=== PATIENT | male | born 1970 | race African-American/Black ===

== ENCOUNTER 2017-07-09 06:05 | Emergency (ER) | payer BC ==
[2017-07-09 06:18] VITALS: BP 157/96; PULSE 102; TEMP 97.5; BMI 25.0
[2017-07-09] MEDS ORDERED: SODIUM CHLORIDE 1,000 ML IV ONE (06:22)
--- NOTE | 2017-07-09 06:22 | PDOC ---
History of Present Illness - General Chief Complaint: Weakness Stated Complaint: WEAKNESS DECREASED APPETITE Time Seen by Provider: 07/09/17 06:16 History Source: Patient Exam Limitations: No Limitations - History of Present Illness Initial Comments: 07/09/17 06:35 This is a 47-year-old male who is an insulin-dependent diabetic who comes in complaining of not feeling well. Patient said he has had decreased appetite and has vomited what he has eaten a couple a times. Patient denies any fever, cough , congestion, diarrhea, chest pain, abdominal pain, shortness of breath, rashes or recent illnesses. Patient said his sugars have been running somewhat high and at home yesterday were in the 400s. Today in the emergency room his fingerstick blood sugar was 376. PAST MEDICAL HISTORY: no significant history PAST SURGICAL HISTORY: no significant history FAMILY HISTORY: no pertinant history SOCIAL HISTORY: Pt lives with family and is employed. MEDICATIONS: reviewed ALLERGIES: As per nursing notes Review of Systems General: No fevers or chills, no weakness, no weight loss HEENT: No change in vision. No sore throat,. No ear pain CardioVascular: No chest pain or shortness of breath Respiratory:No cough, or wheezing. Gastrointestinal: no nausea, vomitting, diarrhea or constipation, No rectal bleeding Genitourinary: No dysuria, hematuria, or frequency Musculoskeletal: No joint or muscle pain or swelling Neurologic: No headache, vertigo, dizziness or loss of consciousness Psychiatric: no depression Skin: No rashes or easy bruising Endocrine: no increased thirst or abnormal weight change Allergic: no skin or latex allergy All other systems reviewed and normal Exam: General: Well-nourished well-developed individual, no acute distress HEENT: Throat: Normal, tonsils normal, no erythema or exudate Neck: Supple, no meningeal signs, no lymphadenopathy Eyes::Pupils equal reactive and round, extraocular motion intact Chest: Nontender to palpation Cardiac: S1-S2 normal, regular rate and rhythm, no murmurs rubs or gallops Respiratory: Lungs clear to auscultation bilateral Abdomen: Soft, nondistended, normal bowel sounds, nontender to palpation diffusely Extremities: Warm, dry, no cyanosis, clubbing, or edema Skin: No rashes Neuro: Alert and oriented x3, CN II - XII intact, nonfocal exam with normal strength, normal sensation, normal reflexes, normal gait, Psych: Normal mood and affect Medical decision making: This is a 47-year-old male, insulin-dependent diabetic, otherwise healthy whose blood sugarshave been running a bit high and he hasn't been feeling well. Will obtain CBC, comp, EKG, lipase, magnesium, cardiac profiles, Will give patient a liter of fluid and asked that patient give himself a insulin bolus from his pump to cover the elevated fingerstick blood sugar here in the ED. 07/09/17 06:38 EKG shows normal sinus rhythm at a rate of 100, otherwise no acute ST-T wave changes 07/09/17 07:00 Care of this patient was transferred to Dr. Lisa at 7 AM workup of this patient is still pending. Case discussed in detail with oncoming Emergency Physician including history, physical exam and ancillary studies. Oncoming Emergency Physician has assumed care for the patient and will complete the evaluation and treatment. Patient is aware of the plan. Pt is clinically unchanged and stable. Past History - Past Medical History Allergies/Adverse Reactions: Allergies Allergy/AdvReac Type Severity Reaction Status Date / Time No Known Allergies Allergy Verified 11/02/15 09:11 Home Medications: Ambulatory Orders Insulin Pump Controller [Snap Insulin Pump Controller] 0 units SQ DAILY Diabetes: Yes (iddm) - Suicide/Smoking/Psychosocial Hx Smoking History: Current every day smoker Have you smoked in the past 12 months: No Number of Cigarettes Smoked Daily: 10 'Breaking Loose' booklet given: 10/29/14 Hx Alcohol Use: No Drug/Substance Use Hx: No Substance Use Type: None *DC/Admit/Observation/Transfer Diagnosis at time of Disposition: Hyperglycemia - Discharge Dispostion Condition at time of disposition: Stable - Referrals Referrals: Rowdy Jarrett MD [Primary Care Provider] - - Patient Instructions - Post Discharge Activity
[2017-07-09 07:32] LABS: PH,URINE 5.5 (4.5-8); URINE APPEARANCE Clear; URINE BILIRUBIN 1+ (NEGATIVE); URINE GLUCOSE (UA) 2+ (NEGATIVE); URINE KETONE 4+ (NEGATIVE); URINE LEUK ESTERASE Negative (NEGATIVE); URINE NITRITE Negative (NEGATIVE)
[2017-07-09 07:46] LABS: BASOPHIL 0.5 % (0-2.0); EOSINOPHIL 0.9 % (0-4.5); MCH 31.8 pg (25.7-33.7); MEAN CELL VOLUME 93.4 fl (80-96); NEUTROPHILS 68.2 % (42.8-82.8); PLATELET COUNT 386 K/MM3 (134-434); RDW 11.6 % (11.9-15.9); WHITE BLOOD COUNT 13.1 K/mm3 (4.0-10.8)
[2017-07-09 07:47] LABS: URINE BLOOD Trace-lysed (NEGATIVE); URINE COLOR YELLOW; URINE PROTEIN 1+ (NEGATIVE)
[2017-07-09] MEDS ORDERED: SODIUM CHLORIDE 0.9% 1000 ML INFUS.BAG IV ONE (08:01)
[2017-07-09 08:31] LABS: ALBUMIN 4.3 g/dl (3.5-5.0); ALK PHOS 85 U/L (32-92); ANION GAP 15 (8-16); BILIRUBIN,TOTAL 1.3 mg/dl (0.2-1.0); CALCIUM 9.4 mg/dl (8.4-10.2); CO2 20 mmol/L (22-28); CPK 187 IU/L (39-308); MAGNESIUM 1.9 mg/dL (1.8-2.4); SGOT/AST 16 U/L (10-42); SGPT/ALT 37 U/L (10-40)
[2017-07-09 08:39] LABS: GLUCOSE,RANDOM 365 mg/dl (74-106)
[2017-07-09 08:41] LABS: TROPONIN I (DFP) < 0.03 ng/ml (0.03-0.50)
[2017-07-09 09:56] LABS: ANION GAP 8 (8-16); CALCIUM 8.5 mg/dl (8.4-10.2); CO2 22 mmol/L (22-28); CREATININE 0.8 mg/dl (0.6-1.3); GLUCOSE,RANDOM 211 mg/dl (74-106)
[2017-07-09 10:30] LABS: URINE RBC 0-2 /hpf (0-3); URINE WBC 0-2 (0-2)
[2017-07-09 10:32] LABS: URINE BACTERIA FEW /hpf (NEGATIVE)
--- NOTE | 2017-07-09 10:36 | PDOC ---
*Physical Exam - Vital Signs Last Vital Signs Temp Pulse Resp BP Pulse Ox 97.5 F L 102 H 16 157/96 100 07/09/17 06:13 07/09/17 06:13 07/09/17 06:13 07/09/17 06:13 07/09/17 06:13 - Physical Exam Comments: 07/09/17 10:36 Awake alert no acute distress, moist mucous membranes, cardiac and lung exam is normal abdomen is soft and nontender, extremities are warm well perfused, alert and oriented. ED Treatment Course - LABORATORY CBC & Chemistry Diagram: 07/09/17 06:40 07/09/17 09:27 - ADDITIONAL ORDERS Additional order review: Laboratory Results 07/09/17 07/09/17 07/09/17 09:27 09:27 08:49 Sodium 137 Potassium 4.2 Chloride 107 Carbon Dioxide 22 Anion Gap 8 BUN 15 Creatinine 0.8 Creat Clearance w eGFR POC Glucometer [phone] Random Glucose 211 H D Calcium 8.5 Magnesium Total Bilirubin AST ALT Alkaline Phosphatase Creatine Kinase Creatine Kinase Index CK-MB (CK-2) 3.6 Troponin I Cancelled Total Protein Albumin Lipase Urine Color Urine Appearance Urine pH Ur Specific Maynard Urine Protein Urine Glucose (UA) Urine Ketones Urine Blood Urine Nitrite Urine Bilirubin Urine Urobilinogen Ur Leukocyte Esterase 07/09/17 07/09/17 07/09/17 06:50 06:50 06:30 Sodium 133 L Potassium 4.1 Chloride 98 Carbon Dioxide 20 L D Anion Gap 15 BUN 17 D Creatinine 1.0 D Creat Clearance w eGFR > 60 POC Glucometer Random Glucose 365 H* D Calcium 9.4 Magnesium 1.9 Total Bilirubin 1.3 H D AST 16 D ALT 37 D Alkaline Phosphatase 85 Creatine Kinase 187 Creatine Kinase Index 2.2 CK-MB (CK-2) 4.2 H Troponin I < 0.03 L Total Protein 7.0 Albumin 4.3 Lipase 16 L Urine Color Yellow Urine Appearance Clear Urine pH 5.5 Ur Specific Maynard 1.025 Urine Protein 1+ H Urine Glucose (UA) 2+ H Urine Ketones 4+ H Urine Blood Trace-lysed H Urine Nitrite Negative Urine Bilirubin 1+ H Urine Urobilinogen 1.0 Ur Leukocyte Esterase Negative 07/09/17 06:13 Sodium Potassium Chloride Carbon Dioxide Anion Gap BUN Creatinine Creat Clearance w eGFR POC Glucometer [phone] Random Glucose Calcium Magnesium Total Bilirubin AST ALT Alkaline Phosphatase Creatine Kinase Creatine Kinase Index CK-MB (CK-2) Troponin I Total Protein Albumin Lipase Urine Color Urine Appearance Urine pH Ur Specific Maynard Urine Protein Urine Glucose (UA) Urine Ketones Urine Blood Urine Nitrite Urine Bilirubin Urine Urobilinogen Ur Leukocyte Esterase 07/09/17 07/09/17 07/09/17 08:49 06:40 06:13 RBC 4.52 MCV 93.4 MCHC 34.0 RDW 11.6 L MPV 8.0 Neutrophils % 68.2 D Lymphocytes % 23.9 D Monocytes % 6.5 Eosinophils % 0.9 D Basophils % 0.5 POC Glucometer [phone] - Medications Given in the ED: ED Medications Discontinued Medications Generic Name Dose Route Start Last Admin Trade Name Leanne PRN Reason Stop Dose Admin Sodium Chloride 1,000 mls @ 1,000 mls/hr 07/09/17 06:22 07/09/17 06:36 Normal Saline - IV 07/09/17 07:21 1,000 mls/hr .Q1H ONE Administration Sodium Chloride 1,000 ml 07/09/17 08:01 07/09/17 08:04 Normal Saline - IV 07/09/17 08:02 1,000 ml ONCE ONE Administration Medical Decision Making - Medical Decision Making 07/09/17 10:34 47-year-old male diabetic here today complaining of nausea vomiting and high sugars since yesterday. Patient states he threw up a few times last night. None today however has not eaten anything today. He does use an insulin pump has not given himself any boluses due to the fact that he has not been eating. Does have a sick contact of her daughter who had a viral illness and cold-like symptoms 2 weeks ago. No travel, abdominal pain, chest pain, or fevers. Patient was signed out to a Dr. August pending routine lab work IV hydration and repeat glucose check. Repeat glucose check was 211, lites showed a minor gap of 15, CK-MB was 4.2 troponin was negative. EKG was unremarkable. Patient feels improved after 2 L of IV fluids is now tolerating by mouth both liquids and solids, repeat BMP shows a normal anion gap, and a normal CK-MB. We'll discharge patient home to follow-up with his primary doctor Dr. Robles. States he had a normal cardiac stress test one month ago *DC/Admit/Observation/Transfer Diagnosis at time of Disposition: Hyperglycemia, Gastritis - Discharge Dispostion Disposition: HOME Condition at time of disposition: Improved Admit: No - Referrals Referrals: Rowdy Jarrett MD [Primary Care Provider] - - Patient Instructions Printed Discharge Instructions: Gastritis (Alternative Therapy) Additional Instructions: Follow-up with Dr. Robles. Call to schedule for next week. Return for any persistent vomiting, high fevers, pain, persistent high sugars or any concerns - Post Discharge Activity
--- NOTE | 2017-07-10 10:23 | EKG ---
Test Reason : Blood Pressure : / mmHG Vent. Rate : 100 BPM Atrial Rate : 100 BPM P-R Int : 132 ms QRS Dur : 086 ms QT Int : 350 ms P-R-T Axes : 072 070 068 degrees QTc Int : 451 ms NORMAL SINUS RHYTHM MINIMAL VOLTAGE CRITERIA FOR LVH, MAY BE NORMAL VARIANT BORDERLINE ECG WHEN COMPARED WITH ECG OF 16-MAY-2007 19:42, VENT. RATE HAS INCREASED BY 36 BPM QT HAS LENGTHENED Confirmed by ELIDA GREEN, HYACINTH ([id number]) on 07/10/2017 10:23:05 AM Referred By: DR PULLIAM Confirmed By:HYACINTH MARRERO MD
== END 2017-07-09 11:48 | disposition home or self-care (01) ==
LOC: FER 06:05
PROC: 3E0337Z Introduction of Electrolytic and Water Balance Substance into Peripheral Vein, Percutaneous Approach (ICD-10-PCS; principal; 2017-07-09)
DX: E11.65 Type 2 diabetes mellitus with hyperglycemia (principal); F17.210 Nicotine dependence, cigarettes, uncomplicated; Z79.4 Long term (current) use of insulin; Z96.41 Presence of insulin pump (external) (internal)
CPT/HCPCS: 36415; 80048; 80053; 81003; 81015; 82550; 82553; 83690; 83735; 84484; 85025; 93005; 99282-25

== ENCOUNTER 2020-09-16 15:23 | Emergency (ER) | payer BC | END 2020-09-16 17:09 | disposition home or self-care (01) | LOC: JVIRT 15:23 | DX: Z20.822 Contact with and (suspected) exposure to COVID-19 (principal) | CPT/HCPCS: C9803; G2012-GT; U0003 ==

== ENCOUNTER 2021-06-06 08:03 | Emergency (ER) | payer OTHER, BC ==
[2021-06-06 08:11] VITALS: BP 128/78; PULSE 76; TEMP 98; BMI 26.2
[2021-06-06] MEDS ORDERED: DIPHTH,PERTUSS(ACELL),TET 0.5 ML DISP.SYRIN IM ONE ×2 (08:14→08:38)
== END 2021-06-06 08:44 | disposition home or self-care (01) ==
LOC: FER 08:03
PROC: 3E0234Z Introduction of Serum, Toxoid and Vaccine into Muscle, Percutaneous Approach (ICD-10-PCS; principal; 2021-06-06)
DX: S61.012A Laceration without foreign body of left thumb without damage to nail, initial encounter (principal); W26.0XXA Contact with knife, initial encounter; Y93.G1 Activity, food preparation and clean up
CPT/HCPCS: 90715; 99284-25

== ENCOUNTER 2021-11-27 07:22 | Emergency (ER) | payer BC ==
[2021-11-27] MEDS ORDERED: AMOX TR/POT CLAV 875MG/125MG TABLETS (FP) PO ONE (07:28)
[2021-11-27] MEDS ORDERED: IBUPROFEN 600 MG TABLET (FP) PO ONE (07:28)
[2021-11-27 07:39] VITALS: BP 125/77; PULSE 107; TEMP 98.7; BMI 26.4
== END 2021-11-27 07:47 | disposition home or self-care (01) ==
LOC: FER 07:22
DX: K04.7 Periapical abscess without sinus (principal)
CPT/HCPCS: 99283-25

== ENCOUNTER 2022-04-25 09:14 | Emergency (ER) | payer BC ==
[2022-04-25] MEDS ORDERED: SODIUM CHLORIDE 1,000 ML IV STA (09:23)
[2022-04-25] MEDS ORDERED: FAMOTIDINE 20 MG/50 ML IVPB 20 MG/50 ML MG IVPB ONE ×2 (09:23→09:37)
[2022-04-25 09:32] VITALS: TEMP 99.2; BMI 25.4
[2022-04-25 10:43] LABS: HEMATOCRIT 38.7 % (35.4-49); HEMOGLOBIN 13.5 G/dL (11.7-16.9); MCH 32.6 pg (25.7-33.7); MCHC 34.8 g/dl (32.0-35.9); MEAN CELL VOLUME 93.8 fl (80-96); MEAN PLT VOLUME 6.8 fl (7.5-11.1); PLATELET COUNT 386.8 10^3/uL (134-434); RBC 4.13 10^6/uL (4.00-5.60); RDW 12.8 % (11.9-15.9); WHITE BLOOD COUNT 6.9 10^3/uL (4.0-10.8)
[2022-04-25 11:05] LABS: ALBUMIN 3.9 g/dl (3.4-5.0); BILIRUBIN,TOTAL 1.1 mg/dl (0.2-1); CALCIUM 9.4 mg/dl (8.5-10); CREATININE 0.7 mg/dl (0.55-1.3); TOT PROT 6.6 g/dl (6.4-8.2)
[2022-04-25 12:17] LABS: EPITHELIAL CELLS RARE /hpf; URINE MUCUS 2+
[2022-04-25 12:52] LABS: PLATELET ESTIMATE ADEQUATE
[2022-04-25 13:52] VITALS: BP 129/90; PULSE 81; RESP 16
== END 2022-04-25 14:03 | disposition home or self-care (01) ==
LOC: FER 09:14
PROC: 3E033GC Introduction of Other Therapeutic Substance into Peripheral Vein, Percutaneous Approach (ICD-10-PCS; principal; 2022-04-25)
DX: R10.13 Epigastric pain (principal)
CPT/HCPCS: 36415; 74177-TC; 80053; 81003; 81015; 83690; 84484; 85027; 87086; 99285-25; C1887; Q9967

== ENCOUNTER 2022-09-20 07:07 | Day surgery (SDC) | payer BC ==
[2022-09-20 07:26] VITALS: BMI 25.7
[2022-09-20] MEDS ORDERED: ACETAMINOPHEN 500 MG TABLET (FP) PO ONE (08:12)
[2022-09-20] MEDS ORDERED: MIDAZOLAM HCL 2 MG/2 ML SINGLE DOSE VIAL ONE ×2 (09:16→09:21)
[2022-09-20] MEDS ORDERED: PROPOFOL 20 ML ONE ×2 (09:19→10:18)
[2022-09-20] MEDS ORDERED: ceFAZolin SODIUM 1 GM VIAL IVPB ONE (09:22)
[2022-09-20] MEDS ORDERED: LIDOCAINE HCL 1%, 10 MG/ML (20ML VIAL) INF ONE ×3 (09:35)
[2022-09-20] MEDS ORDERED: CLOPIDOGREL BISULFATE 75 MG TABLET (FP) PO ONE (10:37)
[2022-09-20] MEDS ORDERED: CLOPIDOGREL BISULFATE 75 MG TABLET (FP) ONE (11:01)
[2022-09-20] MEDS ORDERED: oxyCODONE HCL 5 MG TABLET PO ONE (11:14)
[2022-09-20] MEDS ORDERED: ONDANSETRON 4 MG/2 ML VIAL IVPUSH PRN (11:14)
[2022-09-20] MEDS ORDERED: LACTATED RINGERS SOLUTION 1,000 ML IV SCH (11:15)
[2022-09-20 12:04] VITALS: RESP 18
[2022-09-20] MEDS ORDERED: oxyCODONE HCL 5 MG TABLET ONE (12:09)
[2022-09-20 12:59] VITALS: BP 139/76; PULSE 76; TEMP 97.9
== END 2022-09-20 12:50 | disposition home or self-care (01) ==
LOC: JER 07:07 → JERFT 07:07 → JASUSAT 08:51
PROVIDERS: ATTEND Surgery Vascular Surgery
PROC: 047L3D1 Dilation of Left Femoral Artery with Intraluminal Device, using Drug-Coated Balloon, Percutaneous Approach (ICD-10-PCS; principal; 2022-09-20 10:30)
DX: I70.212 Atherosclerosis of native arteries of extremities with intermittent claudication, left leg (principal)
CPT/HCPCS: 37227; C1877; C2623; 76000-TC-FY; 93971-TC; 94760; 99285-25; C1760; C1769; C1887

== ENCOUNTER 2022-11-15 07:49 | Inpatient (IN) | payer BC ==
[2022-11-15 07:58] VITALS: BMI 25.0
[2022-11-15 09:06] LABS: BASO % 0.5 % (0-2.0); EOS % 2.5 % (0-4.5); HEMATOCRIT 40.3 % (35.4-49); HEMOGLOBIN 13.9 GM/dL (11.7-16.9); LYMPH % 23.3 % (8-40); MCH 30.7 pg (25.7-33.7); MCHC 34.5 g/dl (32.0-35.9); MEAN CELL VOLUME 88.9 fl (80-96); MEAN PLT VOLUME 7.1 fl (7.5-11.1); MONO % 5.4 % (3.8-10.2); NEUT % 68.3 % (42.8-82.8); PLATELET COUNT 416 10^3/uL (134-434); RBC 4.53 M/mm3 (4.00-5.60); RDW 12.3 % (11.9-15.9); WHITE BLOOD COUNT 8.3 K/mm3 (4.0-10.0)
[2022-11-15 09:15] LABS: INR 1.08 (0.83-1.09); PROTHROMBIN TIME (PATIENT) 12.5 SEC (9.7-13.0)
[2022-11-15 09:17] LABS: ACTIVATED PTT 44.4 SECONDS (25.2-36.5)
[2022-11-15 09:25] LABS: CHLORIDE 99 mmol/L (98-107); SODIUM 135 mmol/L (136-145)
[2022-11-15 09:27] LABS: CALCIUM 9.9 mg/dL (8.5-10.1)
[2022-11-15 09:28] LABS: ALBUMIN 3.7 g/dl (3.4-5.0); ANION GAP 6 MMOL/L (8-16); BLOOD UREA NITROGEN 18.9 mg/dL (7-18); CO2 30 mmol/L (21-32)
[2022-11-15 09:30] LABS: SGOT/AST 48 U/L (15-37); SGPT/ALT 128 U/L (13-61)
[2022-11-15 09:32] LABS: BILIRUBIN,TOTAL 0.7 mg/dL (0.2-1); TOT PROT 7.6 g/dl (6.4-8.2)
[2022-11-15 09:33] LABS: ALK PHOS 141 U/L (45-117)
[2022-11-15 10:03] LABS: GLUCOSE,RANDOM 416 mg/dL (74-106)
[2022-11-15] MEDS ORDERED: SODIUM CHLORIDE 0.9% 500 ML INFUS.BAG IV ONE (10:06)
[2022-11-15] MEDS ORDERED: ACETAMINOPHEN 325 MG TABLET (FP) PO PRN ×2 (11:57→16:49)
[2022-11-15] MEDS ORDERED: SODIUM CHLORIDE 1,000 ML IV SCH (12:00)
[2022-11-15] MEDS ORDERED: PIPERACILLIN/TAZOB 3.375 GM 3.375 GM in DEXTROSE 5%-WATER - 50 ML IVPB SCH (13:00)
[2022-11-15] MEDS ORDERED: PREGABALIN 75 MG CAPSULE PO SCH (14:00)
[2022-11-15] MEDS ORDERED: HEPARIN NA (PORCINE) 5,000 UNITS/ML 1ML VIAL ONE ×4 (14:30→16:06)
[2022-11-15] MEDS ORDERED: LIDOCAINE HCL 1%, 10 MG/ML (10ML VIAL) MDV ONE (14:30)
[2022-11-15] MEDS ORDERED: MIDAZOLAM HCL 2 MG/2 ML SINGLE DOSE VIAL ONE ×3 (14:45→15:48)
[2022-11-15] MEDS ORDERED: PROPOFOL 20 ML ONE (14:45)
[2022-11-15] MEDS ORDERED: LIDOCAINE 1% P/F 10 MG/ML VIAL INF ONE (14:58)
[2022-11-15] MEDS ORDERED: ONDANSETRON 4 MG/2 ML VIAL IVPUSH PRN (16:21)
[2022-11-15] MEDS ORDERED: INSULIN SLIDING SCALE (NOVOLOG) 1 VIAL SQ SCH ×3 (16:30→22:00)
[2022-11-15] MEDS: CLOPIDOGREL BISULFATE 75 MG TABLET (FP) PO SCH (17:02)
[2022-11-15] MEDS ORDERED: INSULIN (NOVOLOG) ASPART 100 UNITS/ML 10ML VIAL SQ ONE (17:07)
[2022-11-15] MEDS ORDERED: CLOPIDOGREL BISULFATE 75 MG TABLET (FP) ONE (17:08)
[2022-11-15] MEDS: SODIUM CHLORIDE 1,000 ML IV SCH (18:10)
[2022-11-15] MEDS: PIPERACILLIN/TAZOB 3.375 GM 3.375 GM in DEXTROSE 5%-WATER - 50 ML IVPB SCH (18:37)
[2022-11-15] MEDS: oxyCODONE HCL 5 MG TABLET PO PRN (18:54)
[2022-11-15] MEDS ORDERED: INSULIN (LEVEMIR) 100 UNITS/ML UNITS SQ ONE ×2 (21:46→22:00)
[2022-11-15] MEDS: PREGABALIN 25 MG CAPSULE PO SCH (21:50)
[2022-11-16] MEDS: PIPERACILLIN/TAZOB 3.375 GM 3.375 GM in DEXTROSE 5%-WATER - 50 ML IVPB SCH ×3 (02:09→17:32)
[2022-11-16] MEDS: INSULIN SLIDING SCALE (NOVOLOG) 1 VIAL SQ SCH ×6 (02:15→21:40)
[2022-11-16] MEDS: PREGABALIN 25 MG CAPSULE PO SCH ×3 (06:37→21:12)
[2022-11-16] MEDS: oxyCODONE HCL 5 MG TABLET PO PRN (06:44)
[2022-11-16] MEDS ORDERED: INSULIN (LEVEMIR) 100 UNITS/ML UNITS SQ SCH ×2 (07:00)
[2022-11-16] MEDS ORDERED: INSULIN (NOVOLOG) ASPART 100 UNITS/ML 10ML VIAL SQ SCH ×2 (07:00)
[2022-11-16] MEDS ORDERED: GLUCAGON 1 MG KIT IVPUSH PRN ×2 (09:10→13:13)
[2022-11-16] MEDS ORDERED: PANTOPRAZOLE 40 MG TABLET PO SCH ×2 (10:00)
[2022-11-16] MEDS: SODIUM CHLORIDE 1,000 ML IV SCH ×2 (11:00→13:34)
[2022-11-16] MEDS: CLOPIDOGREL BISULFATE 75 MG TABLET (FP) PO SCH (11:07)
[2022-11-16] MEDS ORDERED: PROMETHAZINE HCL 25 MG/1 ML VIAL IVPB PRN ×2 (11:07→13:13)
[2022-11-16] MEDS ORDERED: ONDANSETRON 4 MG/2 ML VIAL IVPUSH PRN ×2 (11:07→13:13)
[2022-11-16] MEDS ORDERED: LACTATED RINGERS SOLUTION 1,000 ML IV SCH (11:15)
[2022-11-16] MEDS ORDERED: LIDOCAINE HCL 1%, 10 MG/ML (10ML VIAL) MDV ONE (11:58)
[2022-11-16] MEDS ORDERED: BUPIVACAINE HCL/PF 0.5% (5MG/ML) 10 ML VIAL ONE (11:58)
[2022-11-16] MEDS ORDERED: GENTAMICIN SO4 80 MG/2 ML VIAL ONE (11:58)
[2022-11-16] MEDS ORDERED: BUPIVACAINE HCL/PF 0.5% (5 MG/ML) 30 ML VIAL IJ ONE (12:24)
[2022-11-16] MEDS ORDERED: ACETAMINOPHEN 325 MG TABLET (FP) PO PRN (13:13)
[2022-11-16] MEDS ORDERED: oxyCODONE HCL 5 MG TABLET PO PRN (13:13)
[2022-11-16] MEDS: LACTATED RINGERS SOLUTION 1,000 ML IV SCH (15:36)
[2022-11-16] MEDS: INSULIN (NOVOLOG) ASPART 100 UNITS/ML 10ML VIAL SQ SCH (16:41)
[2022-11-16] MEDS ORDERED: INSULIN (NOVOLOG) ASPART 100 UNITS/ML 10ML VIAL ONE (21:18)
[2022-11-17] MEDS ORDERED: INSULIN (NOVOLOG) ASPART 100 UNITS/ML 10ML VIAL ONE (01:51)
[2022-11-17] MEDS: INSULIN SLIDING SCALE (NOVOLOG) 1 VIAL SQ SCH ×6 (01:53→21:49)
[2022-11-17] MEDS: PIPERACILLIN/TAZOB 3.375 GM 3.375 GM in DEXTROSE 5%-WATER - 50 ML IVPB SCH ×3 (01:54→17:47)
[2022-11-17] MEDS ORDERED: INSULIN (LEVEMIR) 100 UNITS/ML UNITS SQ ONE (05:58)
[2022-11-17] MEDS: INSULIN (NOVOLOG) ASPART 100 UNITS/ML 10ML VIAL SQ SCH ×3 (06:22→16:24)
[2022-11-17] MEDS: PREGABALIN 75 MG CAPSULE PO SCH ×3 (06:22→21:43)
[2022-11-17] MEDS: INSULIN (LEVEMIR) 100 UNITS/ML UNITS SQ SCH (06:23)
[2022-11-17] MEDS: CLOPIDOGREL BISULFATE 75 MG TABLET (FP) PO SCH (09:26)
[2022-11-17] MEDS: PANTOPRAZOLE 40 MG TABLET PO SCH (09:26)
[2022-11-17] MEDS: SODIUM CHLORIDE 1,000 ML IV SCH ×2 (09:28→13:20)
[2022-11-17] MEDS: LACTATED RINGERS SOLUTION 1,000 ML IV SCH (13:19)
[2022-11-17] MEDS ORDERED: PATIENT'S OWN MEDICATION (NON-FORMULARY) (Insulin Pump Controller [Snap Insulin Pump Contr SQ SCH (15:45)
[2022-11-17] MEDS: ACETAMINOPHEN 325 MG TABLET (FP) PO PRN (21:40)
[2022-11-17] MEDS: ATORVASTATIN CA 10 MG TABLET (FP) PO SCH (21:43)
[2022-11-18] MEDS: INSULIN SLIDING SCALE (NOVOLOG) 1 VIAL SQ SCH ×6 (02:25→21:06)
[2022-11-18] MEDS: PIPERACILLIN/TAZOB 3.375 GM 3.375 GM in DEXTROSE 5%-WATER - 50 ML IVPB SCH ×3 (02:27→17:38)
[2022-11-18] MEDS: PREGABALIN 75 MG CAPSULE PO SCH ×3 (06:14→21:06)
[2022-11-18] MEDS: INSULIN (LEVEMIR) 100 UNITS/ML UNITS SQ SCH (06:14)
[2022-11-18] MEDS: INSULIN (NOVOLOG) ASPART 100 UNITS/ML 10ML VIAL SQ SCH ×4 (07:00→16:54)
[2022-11-18] MEDS: SODIUM CHLORIDE 1,000 ML IV SCH ×2 (08:00→23:31)
[2022-11-18] MEDS: CLOPIDOGREL BISULFATE 75 MG TABLET (FP) PO SCH (10:27)
[2022-11-18] MEDS: PANTOPRAZOLE 40 MG TABLET PO SCH (10:27)
[2022-11-18] MEDS: ACETAMINOPHEN 325 MG TABLET (FP) PO PRN ×2 (10:33→21:11)
[2022-11-18] MEDS ORDERED: INSULIN (NOVOLOG) ASPART 100 UNITS/ML 10ML VIAL ONE (21:01)
[2022-11-18] MEDS: ATORVASTATIN CA 10 MG TABLET (FP) PO SCH (21:06)
[2022-11-19] MEDS: PIPERACILLIN/TAZOB 3.375 GM 3.375 GM in DEXTROSE 5%-WATER - 50 ML IVPB SCH ×3 (01:59→18:00)
[2022-11-19] MEDS: INSULIN SLIDING SCALE (NOVOLOG) 1 VIAL SQ SCH ×5 (02:28→18:04)
[2022-11-19] MEDS: PREGABALIN 75 MG CAPSULE PO SCH ×3 (06:41→21:32)
[2022-11-19] MEDS: INSULIN (LEVEMIR) 100 UNITS/ML UNITS SQ SCH (06:42)
[2022-11-19] MEDS: INSULIN (NOVOLOG) ASPART 100 UNITS/ML 10ML VIAL SQ SCH ×3 (06:44→17:02)
[2022-11-19] MEDS: CLOPIDOGREL BISULFATE 75 MG TABLET (FP) PO SCH (09:20)
[2022-11-19] MEDS: PANTOPRAZOLE 40 MG TABLET PO SCH (09:20)
[2022-11-19 10:43] LABS: BASO % 0.5 % (0-2.0); EOS % 4.4 % (0-4.5); HEMATOCRIT 36.3 % (35.4-49); HEMOGLOBIN 12.8 GM/dL (11.7-16.9); LYMPH % 27.1 % (8-40); MCH 30.9 pg (25.7-33.7); MCHC 35.4 g/dl (32.0-35.9); MEAN CELL VOLUME 87.4 fl (80-96); MEAN PLT VOLUME 6.7 fl (7.5-11.1); MONO % 7.3 % (3.8-10.2); NEUT % 60.7 % (42.8-82.8); PLATELET COUNT 392 10^3/uL (134-434); RBC 4.15 M/mm3 (4.00-5.60); RDW 12.5 % (11.9-15.9); WHITE BLOOD COUNT 7.8 K/mm3 (4.0-10.0)
[2022-11-19 11:02] LABS: ALBUMIN 3.2 g/dl (3.4-5.0); BLOOD UREA NITROGEN 11.8 mg/dL (7-18); CALCIUM 9.3 mg/dL (8.5-10.1)
[2022-11-19 11:05] LABS: CREATININE 0.9 mg/dL (0.55-1.3)
[2022-11-19 11:06] LABS: BILIRUBIN,TOTAL 0.9 mg/dL (0.2-1); TOT PROT 6.7 g/dl (6.4-8.2)
[2022-11-19] MEDS: SODIUM CHLORIDE 1,000 ML IV SCH (14:04)
[2022-11-19] MEDS ORDERED: INSULIN (NOVOLOG) ASPART 100 UNITS/ML 10ML VIAL ONE ×2 (18:35→21:25)
[2022-11-19] MEDS: ATORVASTATIN CA 10 MG TABLET (FP) PO SCH (21:32)
[2022-11-20] MEDS: INSULIN SLIDING SCALE (NOVOLOG) 1 VIAL SQ SCH ×7 (02:08→22:29)
[2022-11-20] MEDS: PIPERACILLIN/TAZOB 3.375 GM 3.375 GM in DEXTROSE 5%-WATER - 50 ML IVPB SCH ×3 (02:13→17:59)
[2022-11-20] MEDS: PREGABALIN 75 MG CAPSULE PO SCH ×3 (05:41→22:27)
[2022-11-20] MEDS: INSULIN (LEVEMIR) 100 UNITS/ML UNITS SQ SCH (06:43)
[2022-11-20] MEDS: INSULIN (NOVOLOG) ASPART 100 UNITS/ML 10ML VIAL SQ SCH ×3 (06:46→16:43)
[2022-11-20] MEDS ORDERED: INSULIN (NOVOLOG) ASPART 100 UNITS/ML 10ML VIAL ONE ×2 (08:34→18:03)
[2022-11-20] MEDS: CLOPIDOGREL BISULFATE 75 MG TABLET (FP) PO SCH (09:07)
[2022-11-20] MEDS: PANTOPRAZOLE 40 MG TABLET PO SCH (09:07)
[2022-11-20] MEDS: VANCOMYCIN PREMIX 1.5 GM 1,500 MG/300 ML BAG IVPB SCH (15:10)
[2022-11-20] MEDS: SODIUM CHLORIDE 1,000 ML IV SCH (15:10)
[2022-11-20] MEDS: ATORVASTATIN CA 10 MG TABLET (FP) PO SCH (22:27)
[2022-11-21] MEDS: PIPERACILLIN/TAZOB 3.375 GM 3.375 GM in DEXTROSE 5%-WATER - 50 ML IVPB SCH ×2 (01:52→10:22)
[2022-11-21] MEDS: INSULIN SLIDING SCALE (NOVOLOG) 1 VIAL SQ SCH ×4 (01:52→14:21)
[2022-11-21 05:37] VITALS: RESP 20
[2022-11-21] MEDS: INSULIN (LEVEMIR) 100 UNITS/ML UNITS SQ SCH (06:36)
[2022-11-21] MEDS: INSULIN (NOVOLOG) ASPART 100 UNITS/ML 10ML VIAL SQ SCH ×2 (06:36→11:40)
[2022-11-21] MEDS: PREGABALIN 75 MG CAPSULE PO SCH ×2 (06:37→14:15)
[2022-11-21] MEDS: PANTOPRAZOLE 40 MG TABLET PO SCH (10:23)
[2022-11-21] MEDS: CLOPIDOGREL BISULFATE 75 MG TABLET (FP) PO SCH (10:23)
[2022-11-21] MEDS ORDERED: CEFTRIAXONE 2 GM in DEXTROSE 5%-WATER 100 ML IVPB ONE (11:53)
[2022-11-21] MEDS: SODIUM CHLORIDE 1,000 ML IV SCH (14:19)
[2022-11-21] MEDS: VANCOMYCIN PREMIX 1.5 GM 1,500 MG/300 ML BAG IVPB SCH (14:30)
[2022-11-21 15:16] VITALS: BP 125/80; PULSE 84; TEMP 98.2
== END 2022-11-21 18:26 | disposition home health service (06) | DRG 629 ==
LOC: JER 07:49 → JERBED 08:01 → J6S 18:06
PROVIDERS: ADMIT Family Medicine; ATTEND Family Medicine
PROC: 047K3Z1 Dilation of Right Femoral Artery using Drug-Coated Balloon, Percutaneous Approach (ICD-10-PCS; 2022-11-15)
PROC: 047R3ZZ Dilation of Right Posterior Tibial Artery, Percutaneous Approach (ICD-10-PCS; 2022-11-15)
PROC: 047T3ZZ Dilation of Right Peroneal Artery, Percutaneous Approach (ICD-10-PCS; 2022-11-15)
PROC: B41DZZZ Fluoroscopy of Aorta and Bilateral Lower Extremity Arteries (ICD-10-PCS; 2022-11-15)
PROC: 04CK3ZZ Extirpation of Matter from Right Femoral Artery, Percutaneous Approach (ICD-10-PCS; principal; 2022-11-15 14:00)
PROC: 0H9MXZX Drainage of Right Foot Skin, External Approach, Diagnostic (ICD-10-PCS; 2022-11-16)
PROC: 05HY33Z Insertion of Infusion Device into Upper Vein, Percutaneous Approach (ICD-10-PCS; 2022-11-20)
DX: E10.69 Type 1 diabetes mellitus with other specified complication (principal); M86.9 Osteomyelitis, unspecified; E10.42 Type 1 diabetes mellitus with diabetic polyneuropathy; E10.51 Type 1 diabetes mellitus with diabetic peripheral angiopathy without gangrene; E10.621 Type 1 diabetes mellitus with foot ulcer; L97.519 Non-pressure chronic ulcer of other part of right foot with unspecified severity; Z79.4 Long term (current) use of insulin; K21.9 Gastro-esophageal reflux disease without esophagitis; E10.65 Type 1 diabetes mellitus with hyperglycemia
CPT/HCPCS: 0241U-QW; 36415; 36569; 73630-TC-RT-FY; 76000-TC-FY; 77001-TC-FY; 80053; 82962; 83036; 83735; 85025; 85610; 85730; 86850; 86900; 86901; 87070; 87075; 87186; 87205; 93005; 93010; 94760; 99285-25; C1751; C1760; C1769; C1876; C2623; G0463-25; J1644

== ENCOUNTER 2023-11-27 11:33 | Emergency (ER) | payer BC ==
[2023-11-27 11:43] VITALS: BP 125/87; PULSE 109; RESP 18; TEMP 98.7; BMI 29.5
[2023-11-27] MEDS ORDERED: ONDANSETRON 4 MG/2 ML VIAL ONE (12:24)
[2023-11-27] MEDS: SODIUM CHLORIDE 1,000 ML IV STA ×2 (12:27→13:52)
[2023-11-27] MEDS: ONDANSETRON 4 MG/2 ML VIAL IVPUSH ONE (12:27)
[2023-11-27 12:46] LABS: HEMATOCRIT 44.2 % (35.4-49); HEMOGLOBIN 14.9 G/dL (11.7-16.9); MCH 30.9 pg (25.7-33.7); MCHC 33.6 g/dl (32.0-35.9); MEAN CELL VOLUME 91.9 fl (80-96); MEAN PLT VOLUME 7.3 fl (7.5-11.1); PLATELET COUNT 339.1 10^3/uL (134-434); RBC 4.81 10^6/uL (4.00-5.60); RDW 12.9 % (11.9-15.9); WHITE BLOOD COUNT 10.6 10^3/uL (4.0-10.8)
[2023-11-27 12:49] LABS: PLATELET ESTIMATE ADEQUATE
[2023-11-27 12:56] LABS: ALBUMIN 4.4 g/dl (3.4-5.0); BILIRUBIN,TOTAL 0.9 mg/dl (0.2-1); CALCIUM 9.9 mg/dl (8.5-10.1); CREATININE 0.9 mg/dl (0.6-1.3); POTASSIUM 4.3 mmol/L (3.5-5.1); TOT PROT 7.2 g/dl (6.4-8.2)
== END 2023-11-27 14:34 | disposition home or self-care (01) ==
LOC: FER 11:33
PROC: 3E033GC Introduction of Other Therapeutic Substance into Peripheral Vein, Percutaneous Approach (ICD-10-PCS; principal; 2023-11-27)
PROC: 3E0337Z Introduction of Electrolytic and Water Balance Substance into Peripheral Vein, Percutaneous Approach (ICD-10-PCS; 2023-11-27)
PROC: 3E0337Z Introduction of Electrolytic and Water Balance Substance into Peripheral Vein, Percutaneous Approach (ICD-10-PCS; 2023-11-27)
DX: R11.0 Nausea (principal); R63.0 Anorexia; E86.0 Dehydration
CPT/HCPCS: 36415; 80053; 81003; 82962; 83690; 85027; 99284-25